=== PATIENT | female | born 1950 | race Caucasian/White ===

== ENCOUNTER 2019-01-15 19:32 | Inpatient (IN) | payer OTHER ==
[~2019-01-15] VITALS: Ht 152.4 cm; Wt 54.3 kg
[~2019-01-15 19:32] MED LIST: CYAN100080 PO; MELA10CA PO
[2019-01-15] MEDS ORDERED: PIPER-TAZO 3.375 GM IV (PMX) 100 ML IVPB ONE (20:00)
[2019-01-15] MEDS ORDERED: SOD CHLORIDE 0.9% 1,690 ML IV ONE (20:00)
[2019-01-16] MEDS ORDERED: POTASSIUM CHLORIDE (SR) 20 MEQ TAB PO STA (00:39)
[2019-01-16 00:49] VITALS: Ht 152.4 cm; Wt 54.3 kg
[2019-01-16 01:00] VITALS: BP 137/66; PULSE 83; RESP 18
[2019-01-16] MEDS ORDERED: NACL 0.9% 3 ML SYG IV SCH (01:00)
[2019-01-16] MEDS ORDERED: ALBUTEROL/IPRATROPIUM (NEB) 3 ML AMP HHN PRN (01:00)
[2019-01-16] MEDS ORDERED: ACETAMINOPHEN 325 MG TAB PO PRN (01:00)
[2019-01-16] MEDS ORDERED: MELATONIN 5 MG TABLET PO SCH (01:00)
[2019-01-16] MEDS ORDERED: ONDANSETRON 4 MG INJ IV PRN (01:00)
[2019-01-16 02:15] VITALS: BP 127/69; PULSE 69; RESP 18
[2019-01-16 08:00] VITALS: BP 112/68; PULSE 66; RESP 17
[2019-01-16] MEDS ORDERED: CYANOCOBALAMIN 500 MCG TAB PO SCH (09:00)
[2019-01-16] MEDS ORDERED: CEFTRIAXONE 1 GM/50 ML (PMX) 50 ML IVPB SCH (09:00)
[2019-01-16] MEDS ORDERED: HEPARIN 5,000 UNIT/1 ML VIAL SC SCH (09:00)
[2019-01-16] MEDS ORDERED: AZITHROMYCIN 500MG/NS (PMX) 250 ML IVPB SCH (09:00)
[2019-01-16 13:58] VITALS: BP 117/61; PULSE 64; RESP 16
[2019-01-16] MEDS ORDERED: NON-FORMULARY/PATIENT OWN MED (Melatonin 10 MG) PO SCH (21:00)
== END 2019-01-16 15:35 | disposition home or self-care (01) | DRG 206 ==
LOC: E/R 19:32 → 2NE 20:47
PROVIDERS: ADMIT Internal Medicine; ATTEND Internal Medicine
DX: T17.928A Food in respiratory tract, part unspecified causing other injury, initial encounter (principal); N17.9 Acute kidney failure, unspecified; E87.6 Hypokalemia; M79.7 Fibromyalgia; K58.9 Irritable bowel syndrome, unspecified; T17.220A Food in pharynx causing asphyxiation, initial encounter; R09.89 Other specified symptoms and signs involving the circulatory and respiratory systems; F17.200 Nicotine dependence, unspecified, uncomplicated; X58.XXXA Exposure to other specified factors, initial encounter; Y92.019 Unspecified place in single-family (private) house as the place of occurrence of the external cause; Y99.8 Other external cause status; Y93.89 Activity, other specified
CPT/HCPCS: 36415; 71045; 80053; 81001; 83605; 83735; 83880; 84100; 85025; 96374; J0456; J0696; J1644; J2543; J7030